=== PATIENT | female | born 1955 ===

== ENCOUNTER 2022-03-31 10:36 | Inpatient (IN) | payer OTHER ==
[~2022-03-31] VITALS: Ht 160 cm; Wt 74.8 kg
[2022-04-01] MEDS ORDERED: CHILDREN'S ASPI81 MG (11:10)
[2022-04-07] MEDS ORDERED: LANSOPRAZOLE30 MG (08:51)
[2022-04-07] MEDS ORDERED: MAXIMUM D3325 MCG (08:51)
[2022-04-07] MEDS ORDERED: FERROUS SULFAT325 M2 (08:51)
[2022-04-07] MEDS ORDERED: CILOSTAZOL50 MG (08:51)
[2022-04-07] MEDS ORDERED: VITAMIN B-121000 MCG (08:51)
[2022-04-07] MEDS ORDERED: PERCOCET 5-3251 EACH PO (08:59)
[2022-04-07] MEDS ORDERED: INTEGRA PLUS C1 EACH PO (08:59)
[2022-04-07] MEDS ORDERED: CLOBETASOL EMOL15 GM TOP (09:01)
== END 2022-04-07 11:23 | disposition home or self-care (01) | DRG 330 ==
LOC: O/R 04-04 05:28 → SURH 04-04 05:28 → SURG 04-04 07:00 → SURH 04-04 10:03
PROVIDERS: ADMIT Surgery; ATTEND Surgery
PROC: 07BB4ZZ Excision of Mesenteric Lymphatic, Percutaneous Endoscopic Approach (ICD-10-PCS; 2022-04-04)
PROC: 0DTF4ZZ Resection of Right Large Intestine, Percutaneous Endoscopic Approach (ICD-10-PCS; principal; 2022-04-04 07:00)
DX: C18.2 Malignant neoplasm of ascending colon (principal); K62.5 Hemorrhage of anus and rectum; R59.0 Localized enlarged lymph nodes; D64.9 Anemia, unspecified; N73.6 Female pelvic peritoneal adhesions (postinfective); N99.4 Postprocedural pelvic peritoneal adhesions; Z20.822 Contact with and (suspected) exposure to COVID-19

== ENCOUNTER 2022-07-17 21:29 | Inpatient (IN) | payer OTHER ==
[~2022-07-17] VITALS: Ht 162.6 cm; Wt 186.0 kg
[~2022-07-17 21:29] MED LIST: CHILDREN'S ASPI81 MG; CILOSTAZOL50 MG; CLOBETASOL EMOL15 GM TOP; FERROUS SULFAT325 M2; INTEGRA PLUS C1 EACH PO; LANSOPRAZOLE30 MG; MAXIMUM D3325 MCG; PERCOCET 5-3251 EACH PO; ULTRAM50 MG PO; VITAMIN B-121000 MCG
[2022-07-17] MEDS ORDERED: CHILDREN'S ASPI81 MG (21:46)
--- NOTE | 2022-07-17 21:46 | NUR ---
SE RECIBE PACIENTE ALERTA Y ORIENTADA X3 DE AMBULANCIA DE TRANSFER. PTE PRESENTA COLITIS Y SANGRADO DE . SE MONITOREAN LOS SV Y SE UBICA EN REBEKAH.
--- NOTE | 2022-07-18 00:06 | NUR ---
PACIENTE LUEGO DE EVALUACION MEDICA COLOCA CONSULTA CON MEDICINA INTERNA.
--- NOTE | 2022-07-18 02:39 | NUR ---
PACIENTE ALERTA Y ORIENTADA X3. SE ORIENTA SOBRE TX Y PROCEDIMIENTO A REALIZAR Y REFIRIO ENTENDER. SE REALIZA MUESTRAS DE LABORATORIO BAJO MEDIDAS ASEPTICAS. SE ADMINISTRA MEDICAMENTO ORDENADO POR . PACIENTE CANALIZADA EN [facility].
[2022-07-22] MEDS ORDERED: LANSOPRAZOLE30 MG (14:29)
[2022-07-22] MEDS ORDERED: ANTI-DIARRHEAL2 M1 (14:29)
[2022-07-25] MEDS ORDERED: METRONIDAZOLE500 MG PO (14:37)
[2022-07-25] MEDS ORDERED: CIPRO500 MG PO (14:37)
[2022-07-25] MEDS ORDERED: KETO10TA2 PO (14:41)
== END 2022-07-25 20:35 | disposition home or self-care (01) | DRG 392 ==
LOC: ER 21:29 → SURH 07-18 13:30 → SURG 07-18 13:30
PROVIDERS: ADMIT Surgery; ATTEND Surgery
PROC: B54NZZZ Ultrasonography of Left Upper Extremity Veins (ICD-10-PCS; principal; 2022-07-19)
PROC: 02HV33Z Insertion of Infusion Device into Superior Vena Cava, Percutaneous Approach (ICD-10-PCS; 2022-07-19)
PROC: BP39ZZZ Magnetic Resonance Imaging (MRI) of Left Shoulder (ICD-10-PCS; 2022-07-23)
DX: K52.89 Other specified noninfective gastroenteritis and colitis (principal); M75.32 Calcific tendinitis of left shoulder; M75.52 Bursitis of left shoulder; H10.89 Other conjunctivitis; Z85.038 Personal history of other malignant neoplasm of large intestine; Z92.21 Personal history of antineoplastic chemotherapy

== ENCOUNTER 2022-08-21 06:22 | Day surgery (SDC) | payer OTHER ==
[~2022-08-21 06:22] MED LIST changes: +ANTI-DIARRHEAL2 M1; +CIPRO500 MG PO; +KETO10TA2 PO; +METRONIDAZOLE500 MG PO
[2022-08-21] MEDS ORDERED: TRAMADOL HCL50 MG PO (10:34)
== END 2022-08-21 11:40 | disposition home or self-care (01) ==
LOC: CIR.AMB 06:22
PROVIDERS: ATTEND Surgery
DX: T82.514A Breakdown (mechanical) of infusion catheter, initial encounter (principal); C18.2 Malignant neoplasm of ascending colon; R59.0 Localized enlarged lymph nodes; K52.89 Other specified noninfective gastroenteritis and colitis; Z91.040 Latex allergy status; Z20.822 Contact with and (suspected) exposure to COVID-19
CPT/HCPCS: 36561; 36590; 77001; C1788

== ENCOUNTER 2023-05-21 07:09 | Day surgery (SDC) | payer OTHER ==
[2023-05-18 12:11] LABS: HEMATOCRIT 41.5 % (36.0-45.00); HEMOGLOBIN 13.9 g/dL (12.0-15.00); MEAN CELL VOLUME 86.8 fL (80.00-100.00); MEAN CORPUSCULAR HEMOGLOBIN 29.1 pg (27.00-32.0); MEAN CORPUSCULAR HGB CONC 33.5 g/dl (32.0-36.0); PLATELET COUNT 253 K/uL (150-450); RED BLOOD COUNT 4.78 M/uL (4.00-6.00); RED CELL DISTRIBUTION WIDTH 14.2 % (11.5-14.5)
[2023-05-18 12:43] LABS: INR 0.98; PARTIAL THROMBOPLASTIN TIME 25.1 SECONDS (22.0-34.0); PROTHROMBIN TIME 10.3 SECONDS (9.0-11.5)
[2023-05-18 12:44] LABS: ALBUMIN 3.6 gm/dL (3.4-5.0); BILIRUBIN TOTAL 0.56 mg/dL (0.3-1.2); CALCIUM 9.5 mg/dL (8.5-10.1); CREATININE SERUM 0.55 mg/dL (0.55-1.02); GFR 110.59; GLOBULINA 3.7 G/DL (2.4-3.5); POTASSIUM 4.96 mEq/L (3.5-5.1); TOTAL PROTEIN 7.3 gm/dL (6.4-8.2)
[~2023-05-21 07:09] MED LIST changes: +TRAMADOL HCL50 MG PO
[2023-05-21] MEDS ORDERED: TRAMADOL HCL50 MG PO (12:32)
== END 2023-05-21 14:50 | disposition home or self-care (01) ==
LOC: CIR.AMB 07:09
PROVIDERS: ATTEND Surgery
DX: C18.2 Malignant neoplasm of ascending colon (principal); K62.5 Hemorrhage of anus and rectum; K52.89 Other specified noninfective gastroenteritis and colitis; R19.7 Diarrhea, unspecified; Z20.822 Contact with and (suspected) exposure to COVID-19; Z91.040 Latex allergy status